=== PATIENT | male | born 1945 | race Caucasian/White ===

== ENCOUNTER 2019-06-21 18:58 | Outpatient (CLI) | payer OTHER, MEDICARE, BC | END 2019-06-21 18:59 | disposition short-term general hospital (02) | LOC: EMS 18:58 | PROVIDERS: ATTEND Surgery | DX: S06.9X9A Unspecified intracranial injury with loss of consciousness of unspecified duration, initial encounter (principal); S29.9XXA Unspecified injury of thorax, initial encounter; S89.92XA Unspecified injury of left lower leg, initial encounter; V53.6XXA Passenger in pick-up truck or van injured in collision with car, pick-up truck or van in traffic accident, initial encounter; Y92.413 State road as the place of occurrence of the external cause | CPT/HCPCS: A0425; A0427 ==